=== PATIENT | male | born 1990 | race Caucasian/White ===

== ENCOUNTER 2021-09-04 16:21 | Outpatient (REF) | payer MEDICAID, SELFPAY ==
--- NOTE | ~2021-09-04 | US_ITS ---
EXAMINATION: US VENOUS ULTRASOUND WITH DOPPLER LOWER EXTREMITY, RIGHT CLINICAL INFORMATION: Right knee pain. Rule out DVT. COMPARISON: None. TECHNIQUE: Ultrasound of the deep veins is performed from the hip to the calf with compression sonography and color and pulse Doppler assessment. Spectral analysis with color-flow imaging is performed. FINDINGS: There is normal venous compression and respiratory variation and augmented flow. The visualized common femoral vein, superficial femoral vein, profunda femoral vein, popliteal vein, and the trifurcation region shows no evidence of deep venous thrombosis. There is no significant popliteal fossa cyst. Nonspecific small amount of fluid in the medial surface of the knee. If the patient's symptoms persist, followup ultrasound in 5 days 7 days might be of value to exclude proximal propagation from a non-visualized calf vein. US/US venous duplex LE RT IMPRESSION: No DVT demonstrated in the right lower extremity. Nonspecific small amount of anechoic fluid in the medial surface of the knee, uncertain if this communicates with the joint space. If indicated, further evaluation with a radiograph of the right knee or a CT of the right knee could be obtained.
--- NOTE | ~2021-09-04 | XR_ITS ---
EXAMINATION: XR KNEE, RIGHT CLINICAL INFORMATION: This is a 31-year-old female with right knee pain. COMPARISON: None TECHNIQUE: Four views of the right knee. FINDINGS: There are tortuous densities seen in the subcutaneous tissues consistent with varicose veins. This would be best evaluated with ultrasound. There is linear calcification in the distal diaphysis of the femur consistent with a fibroxanthoma. No fracture or joint effusion. Alignment is anatomic. Joint spaces are well maintained. No abnormal soft tissue calcification. XR/XR knee RT 4V IMPRESSION: 1. Varicose veins. This could be further evaluated with a dedicated standing reflux ultrasound study. 2. Fibroxanthoma of the distal femur.
== END 2021-09-04 16:22 | disposition home or self-care (01) ==
LOC: HO.US 16:21
PROVIDERS: PCP Emergency Medicine; Visit Provider Emergency Medicine
DX: M25.561 Pain in right knee (principal)
CPT/HCPCS: 73564; 93971

== ENCOUNTER 2022-12-20 22:02 | Emergency (ER) | payer MEDICAID, SELFPAY ==
[2022-12-20 22:19] VITALS: BP 143/84; PULSE 104; RESP 16; TEMP 36.7; O2SAT 100; BMI 29.2
--- NOTE | 2022-12-21 00:03 | ED.EAR ---
HPI - Ear Problem General Chief complaint: Ear Problems Stated complaint: Right ear pain Time Seen by Provider: 12/20/22 23:49 Source: patient Mode of arrival: ambulatory Limitations: no limitations History of Present Illness HPI Narrative: 32-year-old male who presents emergency department for evaluation of right ear pain x3 days. Patient states that the your pain came on gradually but got worse today. He states he has also noted swelling on the outside of his ear. Patient has had decreased hearing in his right ear compared to the left, he has also felt dizzy and off balance. He denied fever, chills, rhinorrhea. He states he is developing a sore throat. He denied cough. Related Data Previous Rx's Medication Instructions Recorded amoxicillin 500 mg capsule 1,000 mg PO BID 10 days #40 caps 12/21/22 [id number] 3.5 4 drp otic (ear) right QID 7 days 12/21/22 mg-10,000 unit/mL-1 % ear #10 mL drops,susp Allergies Allergy/AdvReac Type Severity Reaction Status Date / Time No Known Allergies Allergy Unverified 03/17/20 16:14 Review of Systems Review of Systems: Yes all other systems are reviewed and are negative [facility] Past Medical History [facility] Narrative: Past medical history: None. Social History Social History Advance Directives: No Advance Directives Information Provided: Yes Physical Exam Vital Signs: Vital Signs: Last Vital Signs Temp 98.0 F 12/20/22 22:19 Pulse 104 H 12/20/22 22:19 Resp 16 12/20/22 22:19 BP 143/84 H 12/20/22 22:19 Pulse Ox 100 12/20/22 22:19 O2 Del Method Room Air 12/20/22 22:19 BMI result Body Mass Index 29.2 General: Awake, alert, male patient, pleasant, cooperative in no distress HEENT: Head is normal cephalic and atraumatic, pupils were equal, round, reactive to light, sclera contact however normal, mouth revealed moist membranes with no erythema or exudates. Patient's right external auditory canal is swollen and tender to palpation, the tympanic membrane is minimally visualized but does appear to be erythematous Neck: Supple with no adenopathy Medical Decision Making Medical Decision Making MDM Narrative: 32-year-old male who presents emergency department for evaluation of right ear pain times 3 days. Patient's exam is consistent with otitis externa and otitis media. Patient was started on amoxicillin 1000 mg twice a day for 10 days and Cortisporin drops 4 drops to the right ear 4 times a day for 7 days. He is advised to take Tylenol ibuprofen for pain. He was given printed and verbal instructions discharged home Differential Diagnosis Differential diagnosis includes but is not limited to otitis media, otitis externa Discharge Plan Discharge Clinical Impression: Otitis externa, Otitis media Patient Disposition: Home, Self-Care Instructions: Otitis Externa (ED), Ear Infection (ED) Additional Instructions: Your external ear canal is very swollen and tender when I push on it. This is consistent with an external ear infection. This is sometimes caused by using Q-tips, do not use Q-tips in the future. An external ear infection is treated with Cortisporin drops 4 drops 4 times a day for 7 days. I had difficulty seeing your tympanic membrane/eardrum and concerned that it may be infected therefore I am also going to treat you with oral antibiotics Take amoxicillin 500 mg pills, 2 pills every 12 hours for 10 days. Take ibuprofen 200 mg pills, 2 pills every 6 hours as needed for pain. Take Tylenol (acetaminophen) 500 mg pills, 2 pills every 4 to 6 hours as needed for pain. Follow-up with your doctor in 2 days. Please return to the emergency department if your symptoms get worse or if you develop any symptoms that are concerning to you. Prescriptions: New amoxicillin 500 mg capsule 1,000 mg PO BID 10 Days Qty: 40 0RF [id number] 3.5-10,000-1 mg/mL-unit/mL-% drops,suspension 4 drp otic (ear) right QID 7 Days Qty: 10 0RF
[2022-12-21 00:25] VITALS: BP 137/85; RESP 18; O2SAT 100
== END 2022-12-21 00:30 | disposition home or self-care (01) ==
PROVIDERS: Emergency Provider Emergency Medicine Emergency Medical Services; PCP Emergency Medicine
DX: H92.01 Otalgia, right ear (principal); H60.91 Unspecified otitis externa, right ear; H66.91 Otitis media, unspecified, right ear
CPT/HCPCS: 99283; 99284